=== PATIENT | male | born 1970 | race Two or more races ===

== ENCOUNTER 2024-01-18 15:00 | Outpatient (RCR) | payer MEDICAID, SELFPAY ==
--- NOTE | 2024-01-09 15:48 | PT.ODAYNRPT ---
PT Outpatient Daily Note OP Daily Note Outpatient Physical Therapy Treatment Date: 01/09/24 Visit Reasons: shoulder surgery Subjective: Pt reports R shoulder continues to be painful at times has 8/10 pain pointing at bicep insertion region following bicep down the arm. Pt shared he has returned to work has been doing light work. Objective: Please see flow sheet for ther ex list. Assessment: Performed light STM to bicep groove, pt TTP. Plan: Continue with POC. Length of Time (minutes) of Treatment: 30 Minutes Procedure Charges Therapeutic Exercise 30 minutes: Yes
--- NOTE | 2024-01-11 18:13 | PT.ODAYNRPT ---
PT Outpatient Daily Note OP Daily Note Outpatient Physical Therapy Treatment Date: 01/11/24 Visit Reasons: shoulder surgery Subjective: Pt is doing work and HH and yard duties and hasn't taken a pain pill since yesterday Objective: See F/S for therex Assessment: Low tissue irritability with AROM Plan: Reassess Length of Time (minutes) of Treatment: 30 Minutes Procedure Charges Therapeutic Exercise 30 minutes: Yes
--- NOTE | 2024-01-18 15:59 | PT.ODS1RPT ---
PT OP Progress/Discharge Note Date of Service: 01/18/24 Progress Note/DC Note Progress Note/Discharge Note: Progress Note Patient Information Visit Reasons: shoulder surgery Service Continue Service or Discharge: Continue Service Status Subjective: Pt is doing work and HH and yard duties with less shoulder pain. He does c/o pain and clicking/popping with IR of shoulder. Objective: See F/S for therex R shoulder AROM: Strength: FF: 140 deg 4/5 Abd: 140 deg 4/5 ER: 85 deg Assessment: Pt has attended 12/12 therapy sessions with good progress with ROM and strength goals. Pt can reach up much better into FF and abd to meet those goals with low tissue irritability with AROM. He is transitioning to strengthening phase with low to moderate tissue irritability. Plan: Pt will need more authorized visits to continue with POC which is up to 24 visits. Extend POC certification dates from 02/24 to 03/26/24 Procedure Charges Therapeutic Exercise 30 minutes: Yes
== END 2024-02-03 23:59 | disposition home or self-care (01) ==
LOC: CPTX 15:00
PROVIDERS: PCP Nurse Practitioner; Referring Provider Nurse Practitioner; Visit Provider Nurse Practitioner
DX: M25.511 Pain in right shoulder (principal); M75.41 Impingement syndrome of right shoulder; S43.431D Superior glenoid labrum lesion of right shoulder, subsequent encounter; X58.XXXD Exposure to other specified factors, subsequent encounter
CPT/HCPCS: 97110

== ENCOUNTER 2024-03-11 14:59 | Outpatient (RCR) | payer MEDICAID, SELFPAY ==
--- NOTE | 2024-03-11 16:06 | PT.ODAYNRPT ---
PT Outpatient Daily Note OP Daily Note Outpatient Physical Therapy Treatment Date: 03/11/24 Visit Reasons: Right shoulder Subjective: Pt c/o R shoulder pain when he reaches across abdomen and points to the anterior shoulder. Objective: See F/S for therex FF AROM: 130 deg Assessment: Pt has pain over the bicipital groove when he reaching across body. Plan: Pt has consultation with provider soon and will call back to discuss Length of Time (minutes) of Treatment: 15 Minutes Procedure Charges Therapeutic Exercise 15 minutes: Yes
== END 2024-04-05 23:59 | disposition home or self-care (01) ==
LOC: CPTX 14:59
PROVIDERS: PCP Nurse Practitioner; Referring Provider Nurse Practitioner; Visit Provider Nurse Practitioner
DX: M25.511 Pain in right shoulder (principal); M75.41 Impingement syndrome of right shoulder; S43.431D Superior glenoid labrum lesion of right shoulder, subsequent encounter; X58.XXXD Exposure to other specified factors, subsequent encounter
CPT/HCPCS: 97110

== ENCOUNTER 2024-05-15 16:16 | Emergency (ER) | payer MEDICAID, SELFPAY ==
[2024-05-15 16:32] VITALS: BP 133/81; PULSE 100; RESP 18; TEMP 36.8; O2SAT 95
--- NOTE | 2024-05-15 16:34 | EDRME_ITS ---
Rapid Medical Screening Exam [facility] Arrival date/time: 05/15/24 16:16 54-year-old male with a history of hyperlipidemia presents to the emergency room with a chief complaint of hitting himself with a metal bar in the left side of the head while working. Patient states this injury occurred at noon and since the event he has been having a worsening headache, dizziness, and nausea. I have greeted and performed a focused initial assessment of this patient. A comprehensive ED assessment and evaluation of the patient, analysis of all test results, and completion of the medical decision making process will be conducted by additional ED providers. Chief Complaint: Wound/Laceration Time Seen by Provider: 05/15/24 16:27 Vital signs: Vital Signs Temperature 98.2 F 05/15/24 16:32 Pulse Rate 100 05/15/24 16:32 Respiratory Rate 18 05/15/24 16:32 Blood Pressure 133/81 H 05/15/24 16:32 Pulse Oximetry (%) 95 05/15/24 16:32 Oxygen Delivery Method Room Air 05/15/24 16:32 Vital signs reviewed by provider: Yes
--- NOTE | 2024-05-15 16:34 | XR_ITS ---
Examination: CT brain head without contrast. 2-D sagittal coronal reconstructions Date and time of exam:May 23, 2024 1651 hrs. Indications: Injury to the head today, head pain CTDI: vol (mGy):49.4 DLP: (mGycm):1006 Technique: Multiple CT axial sections of the brain have been obtained, 5 mm slice thickness. Contrast has not been administered. 2-D sagittal, coronal reconstructions have been obtained Low dose protocols were performed. One or more of the following dose reduction techniques were used; automated exposure control, adjustment of the mA and/or KV according to patient size, use of iterative reconstruction technique. Findings: No significant ventricular enlargement. Intra-axial or extra-axial hemorrhage density is not seen. No mass effect or midline shift Basal cisterns are not remarkable. Fourth ventricle is midline. Cranial vault intact. Impression: Negative for acute hemorrhage, mass effect or midline shift
--- NOTE | 2024-05-15 17:27 | EDNOTE_ITS ---
ED Head Injury RME/HPI General Chief complaint: Wound/Laceration Stated complaint: laceration behind left ear s/p injury Time Seen by Provider: 05/15/24 16:27 Source: patient Arrival date/time: 05/15/24 16:16 54-year-old male with a history of hyperlipidemia presents to the emergency room with a chief complaint of hitting himself with a metal bar in the left side of the head while working. Patient states this injury occurred at noon and since the event he has been having a worsening headache, dizziness, and nausea. Mode of arrival: ambulatory Limitations: no limitations RME / HPI RME / HPI Narrative: 05/15/24 16:16 54-year-old male with a history of hyperlipidemia presents to the emergency room with a chief complaint of hitting himself with a metal bar in the left side of the head while working. Patient states this injury occurred at noon and since the event he has been having a worsening headache, dizziness, and nausea. I have greeted and performed a focused initial assessment of this patient. A comprehensive ED assessment and evaluation of the patient, analysis of all test results, and completion of the medical decision making process will be conducted by additional ED providers. Related Data Previous Rx's ?Medication ?Instructions ?Recorded hydrocodone 5 mg-acetaminophen 325 1 tab PO BID PRN pa in #10 tabs 01/04/21 mg tablet acetaminophen 500 mg capsule 1,000 mg (2 x 500 mg) PO TID #30 02/16/23 caps benzonatate 200 mg capsule 200 mg PO TID PRN cough #20 caps 02/16/23 Review of Systems Review of Systems Systems Reviewed: All systems reviewed, normal except as documented Constitutional Constitutional: Reports system reviewed and no additional complaints, except as documented, Denies fatigue, Denies fever(s), Reports headache(s) and Reports weakness Eyes Eyes: Reports system reviewed and no additional complaints, except as documented, Denies blurry vision and Denies change in vision ENT Ears, Nose, Mouth, and Throat: Reports system reviewed and no additional complaints, except as documented, Reports dizziness, Denies otalgia, Reports headache(s), Denies nasal congestion, Denies throat swelling and Reports vertigo Cardiovascular Cardiovascular: Reports system reviewed and no additional complaints, except as documented, Denies chest pain, Denies dyspnea and Denies dyspnea on exertion Respiratory Respiratory: Reports system reviewed and no additional complaints, except as documented, Denies chest congestion, Denies cough, Denies dyspnea, Denies dyspnea on exertion and Denies wheezing Gastrointestinal Gastrointestinal: Reports system reviewed and no additional complaints, except as documented, Denies abdominal pain, Denies cramping, Reports nausea and Denies vomiting Genitourinary Genitourinary: Reports system reviewed and no additional complaints, except as documented, Denies dysuria and Denies hematuria Musculoskeletal Musculoskeletal: Reports system reviewed and no additional complaints, except as documented and Denies back pain Integumentary/Breasts Skin/Breast: Reports system reviewed and no additional complaints, except as documented and Denies wounds Neurologic Neurologic: Reports system reviewed and no additional complaints, except as documented, Denies confusion, Reports dizziness, Reports headache(s), Denies lack of coordination, Reports vertigo and Reports weakness Psychiatric Psychiatric: Reports system reviewed and no additional complaints, except as documented, Denies anxiety, Denies confusion, Denies depression, Denies paranoia, Denies suicidal ideation and Denies tactile hallucinations Endocrine Endocrine: Reports system reviewed and no additional complaints, except as documented and Denies fatigue Hematologic/Lymphatic Hematologic/Lymphatic: Reports system reviewed and no additional complaints, except as documented and Denies lymphadenopathy Allergic/Immunologic Allergic/Immunologic: Reports system reviewed and no additional complaints, except as documented, Denies throat swelling, Denies urticaria and Denies wheezing ED Exam General Limitations: Present no limitations General appearance: Present alert and in no apparent distress Head Head exam: Present atraumatic, normocephalic and normal inspection Expanded Head Exam Head exam physical: Present abrasion and contusion; Absent laceration, hematoma, raccoon eyes, King's sign, tenderness of temporal artery, CSF rhinorrhea or CSF otorrhea Head image: 2 1. Contusion to the left side of the head 2. Abrasions behind the left ear Eye Eye exam: Present normal appearance, PERRL and EOMI ENT ENT exam: Present normal exam, normal oropharynx and mucous membranes moist Neck Neck exam: Present normal inspection, full ROM and trachea midline Chest Chest inspection: Present normal inspection and symmetric chest wall rise Respiratory Respiratory exam: Present normal lung sounds bilaterally Cardiovascular Cardiovascular exam: Present regular rate, normal rhythm and normal heart sounds Abdominal Exam Abdominal exam: Present soft and normal bowel sounds Extremities Exam Extremities exam: Present normal inspection and full ROM Back Exam Back exam: Present normal inspection and full ROM Neurological Exam Neurological exam: Present alert, oriented X3, CN II-XII intact, normal gait and reflexes normal Expanded Neurological Exam Patient oriented to: Present person, place and time Speech: Present fluid speech Cranial nerves: Normal: EOM function (II, III, IV, ), facial sensation (V) and facial palsy (VII) Cerebellar function: Present normal gait Motor strength - LUE: 5/5 Motor strength - RUE: 5/5 Motor strength - LLE: 5/5 Motor strength - RLE: 5/5 Coma scale eye opening: spontaneous Coma scale motor response: obeys commands Coma scale verbal response: oriented Coma scale total: 15 Psychiatric Psychiatric exam: Present normal affect and normal mood Skin Skin exam: Present warm, dry, intact and normal color Course Quality Measures none Orders Category Date Time Status CT head/brain wo con Stat Exams 05/15/24 16:34 Completed Vital Signs Vital signs: Vital Signs Temperature 98.2 F 05/15/24 16:32 Pulse Rate 100 05/15/24 16:32 Respiratory Rate 18 05/15/24 16:32 Blood Pressure 133/81 H 05/15/24 16:32 Pulse Oximetry (%) 95 05/15/24 16:32 Oxygen Delivery Method Room Air 05/15/24 16:32 Head Injury MDM Narrative MDM Narrative:: 54-year-old male with a history of hyperlipidemia presents to the emergency room with a chief complaint of hitting himself with a metal bar in the left side of the head while working. Patient states this injury occurred at noon and since the event he has been having a worsening headache, dizziness, and nausea. Patient is hemodynamically stable and in no apparent distress Physical examination shows a normal neurological exam. The patient is a GCS of 15 he is alert and oriented x 3 he is able to tell me exactly what happened and how it happened. Patient states that his headache has progressively gotten worse. Patient is able to ambulate and has a normal gait. Patient has 2 small abrasions behind the left ear there is no laceration or any need for sutures CT of the head and brain was completed and shows no acute hemorrhage mass effect or midline shift. Patient was discharged and educated to follow-up with primary care provider in the next 24 to 48 hours and return to the emergency room for any evidence of worsening signs or symptoms Patient data External records reviewed:: [facility] previous records Clinical information provided by:: patient Social determinants that could affect healthcare access:: none Patient has the following chronic illnesses:: No chronic illness How is presenting disease/condition affected by chronic disease/condition?: no chronic disease Evaluation data The following diagnostics were reviewed and interpreted by me:: lab results and radiology exam(s) Lab and/or radiology exams considered but not ordered:: Labs and radiology exams considered and ordered Interpretation Summary: CT of the head and brain-Findings: No significant ventricular enlargement. Intra-axial or extra-axial hemorrhage density is not seen. No mass effect or midline shift Basal cisterns are not remarkable. Fourth ventricle is midline. Cranial vault intact. Impression: Negative for acute hemorrhage, mass effect or midline shift Medications / Prescriptions Medications or Prescriptions considered but not ordered:: No medication given Medication administrations:: No medication given Consultations Consultation(s) initiated? (list below): No Diagnosis Differential diagnosis head injury: concussion without loss of consciousness, epidural hematoma, closed head injury, subarachnoid hematoma, subdural hematoma and concussion with loss of consciousness Most likely diagnosis given after review of the tests above:: Closed head injury Admission Indicated Admission indicated?: not indicated Admission Request Was there a request for admission?: No Disposition Plan Disposition Plan: Discharge Discharge Attestation Discharge Attestation: The patient and all family members were given an opportunity to ask questions and understood the discharge instructions. Discharge instructions specifically effects, indications for sooner follow up or return to the emergency department, and the expected course of current diagnosis. Patient condition: Stable Discharge Plan Plan Patient Disposition: HOME (Self Care) Disposition Comment: Stable Prescriptions/Referrals Prescriptions/Med Rec: No Action hydrocodone-acetaminophen 5-325 mg tablet 1 tab PO BID MDD 10 PRN (Reason: pain) Qty: 10 0RF benzonatate 200 mg capsule 200 mg PO TID PRN (Reason: cough) Qty: 20 0RF acetaminophen 500 mg capsule 1,000 mg PO TID Qty: 30 0RF Referrals: Nathaly Moy FNP [Primary Care Provider] - In 1 week Problem List Clinical Impression: Closed head injury Patient/Caregiver Discharge Instructions Education Materials: ED Head Injury (Adult) Additional Instructions: Por favor, consulte con akbar m?dico de cabecera en las pr?ximas 24 a 48 horas. La tomograf?a computarizada de cr?pedro y cerebro fue negativa para cualquier hallazgo papi. Si observa cualquier evidencia de empeoramiento de los signos o s?ntomas, acuda a urgencias de inmediato. Print Language: [place] Stand Alone Forms: Awilda Award Info., Work/School Release, Patient Portal Info Letter PA/[employer] Supervising Physician PA/[employer] Supervising Physician: Dr. BAUM
== END 2024-05-15 17:45 | disposition home or self-care (01) ==
PROVIDERS: Emergency Provider Emergency Medicine; PCP Registered Nurse Community Health
DX: S00.412A Abrasion of left ear, initial encounter (principal); S00.93XA Contusion of unspecified part of head, initial encounter; W22.09XA Striking against other stationary object, initial encounter; Y99.0 Civilian activity done for income or pay
CPT/HCPCS: 70450; 99284